=== PATIENT | male | born 1980 | race Two or more races ===

== ENCOUNTER 2017-08-07 19:53 | Emergency (ER) | payer OTHER ==
[~2017-08-07] VITALS: Ht 165.1 cm; Wt 84.1 kg
[2017-08-07] MEDS ORDERED: SODIUM CHLORIDE 0.9% 1,000 ML IV ONE (20:37)
[2017-08-07 20:49] LABS: HEMOGLOBIN 17.5 g/dL (13.7-18.0); WHITE BLOOD COUNT 8.5 x10^3/uL (3.4-10)
[2017-08-07] MEDS ORDERED: THIAMINE 100 MG in SODIUM CHLORIDE 0.9% 50 ML IVPB ONE (21:00)
[2017-08-07] MEDS ORDERED: SODIUM CHLORIDE FLUSH 10ML SYR IVF ONE (21:00)
[2017-08-07] MEDS ORDERED: SODIUM CHLORIDE 0.9% 1,000ML IVBOLUS ONE (21:00)
[2017-08-07 21:19] LABS: ASPARTATE AMINO TRANSFERASE 155 U/L (15-37); BLOOD UREA NITROGEN 9 mg/dL (7-18)
[2017-08-07] MEDS ORDERED: ONDANSETRON 2MG/ML, 2ML ONE (22:09)
[2017-08-07] MEDS ORDERED: ONDANSETRON 2MG/ML, 2ML IVPush ONE (22:30)
[2017-08-08] MEDS ORDERED: ONDANSETRON ODT 4 MG ONE (00:17)
[2017-08-08] MEDS ORDERED: ONDANSETRON ODT 4 MG PO ONE (00:30)
[2017-08-08] MEDS ORDERED: LORazepam 2 MG/ML, 1ML ONE ×3 (00:57→07:21)
[2017-08-08] MEDS: LORazepam 2 MG/ML, 1ML IVPush PRN ×4 (01:09→05:40)
[2017-08-08] MEDS ORDERED: ONDANSETRON 2MG/ML, 2ML ONE (03:12)
[2017-08-08] MEDS ORDERED: FLUORESCEIN OPHTHALMIC 1 MG STRIP ONE (03:37)
[2017-08-08] MEDS ORDERED: PROPARACAINE OPHTH 0.5%, 15ML ONE (03:37)
[2017-08-08 09:43] VITALS: BP 111/56
[2017-08-08] MEDS ORDERED: LORA0.5T PO (23:01)
== END 2017-08-08 09:45 | disposition home or self-care (01) ==
LOC: ED 21:04
DX: S05.32XA Ocular laceration without prolapse or loss of intraocular tissue, left eye, initial encounter (principal); F10.120 Alcohol abuse with intoxication, uncomplicated; X58.XXXA Exposure to other specified factors, initial encounter; Y93.89 Activity, other specified; Y92.89 Other specified places as the place of occurrence of the external cause; Y99.8 Other external cause status
CPT/HCPCS: 36415; 80053; 80307; 83690; 85025; 96361; 96365; 96375; 96376; 99285; J2060; J2405; J3411; J7030; Q0162; G0479

== ENCOUNTER 2017-08-08 22:20 | Emergency (ER) | payer SELFPAY ==
[~2017-08-08] VITALS: Ht 170.2 cm; Wt 84.1 kg
[2017-08-08] MEDS ORDERED: ONDANSETRON 2MG/ML, 2ML IVPush ONE (23:00)
[2017-08-08] MEDS ORDERED: FAMOTIDINE 20 MG/2 ML IVP ONE (23:00)
[2017-08-08] MEDS ORDERED: MAALOX/HYOSCYAMINE/LIDOCAINE 45 ML BTL PO ONE (23:00)
[2017-08-08] MEDS ORDERED: SODIUM CHLORIDE 0.9% 1,000ML IVBOLUS ONE (23:00)
[2017-08-08] MEDS ORDERED: SODIUM CHLORIDE FLUSH 10ML SYR IVF ONE (23:00)
[2017-08-08] MEDS ORDERED: LORA0.5T PO (23:01)
[2017-08-08] MEDS ORDERED: MAALOX/HYOSCYAMINE/LIDOCAINE 45 ML BTL ONE (23:11)
[2017-08-08] MEDS ORDERED: ONDANSETRON 2MG/ML, 2ML ONE (23:11)
[2017-08-08] MEDS ORDERED: FAMOTIDINE 20 MG/2 ML ONE (23:11)
[2017-08-08 23:20] LABS: HEMATOCRIT 40.5 % (39.2-51.8); HEMOGLOBIN 13.8 g/dL (13.7-18.0); WHITE BLOOD COUNT 8.5 x10^3/uL (3.4-10)
[2017-08-08 23:24] LABS: ASPARTATE AMINO TRANSFERASE 178 U/L (15-37); BLOOD UREA NITROGEN 8 mg/dL (7-18)
[2017-08-09 02:04] VITALS: BP 118/73
== END 2017-08-09 02:06 | disposition home or self-care (01) ==
LOC: ED 23:11
DX: K29.20 Alcoholic gastritis without bleeding (principal)
CPT/HCPCS: 36415; 76700; 80053; 80307; 83690; 85025; 93005; 96361; 96374; 96375; 99285; J2405; J7030; G0479; S0028